=== PATIENT | female | born 1980 | race Hispanic/Latino ===

== ENCOUNTER → 2023-01-17 | Outpatient (CLI) | payer MEDICARE | LOC: US 08:06 | PROVIDERS: ATTEND Family Medicine | DX: R94.5 Abnormal results of liver function studies (principal) | CPT/HCPCS: 76705 ==

== ENCOUNTER → 2023-09-05 | Outpatient (REF) | payer MEDICARE ==
[~2023-09-05] MED LIST: DIPHENHYDRAMINE HCL INJ 50 MG/ML VIAL ONE; IOPAMIDOL 370 MG/ML 100 ML INFUS..BTL INJ ONE
[2023-09-05 11:47] LABS: CREATININE, SERUM 0.75 mg/dL (0.57-1.11)
== END ==
LOC: CT 10:56
PROVIDERS: ATTEND Family Medicine
DX: D32.9 Benign neoplasm of meninges, unspecified (principal)
CPT/HCPCS: 36415; 70470; 82565; 84520; J1200; Q9967